=== PATIENT | male | born 1985 | race Caucasian/White ===

== ENCOUNTER 2017-04-22 10:50 | Emergency (ER) | payer SELFPAY ==
--- NOTE | 2017-04-22 11:46 | ER Document Report ---
ED Medical Screen (RME) - General Chief Complaint: Eye Injury Stated Complaint: RIGHT EYE INJURY Time Seen by Provider: 04/22/17 11:45 Notes: Patient bent forward in his closet this morning and hit his eye on the vacuum steam cleaner. He now complaints of eye pain and some decreased vision in the right eye. TRAVEL OUTSIDE OF THE [place] IN LAST 30 DAYS: No - Related Data Allergies/Adverse Reactions: No Known Allergies Allergy (Unverified 04/22/17 10:58) Past Medical History Renal/ Medical History: Denies: Hx Peritoneal Dialysis Physical Exam - Vital signs Vitals: Temp Pulse Resp BP Pulse Ox 98.1 F 56 L 16 150/86 H 98 04/22/17 11:01 04/22/17 11:01 04/22/17 11:01 04/22/17 11:01 04/22/17 11:01 Course - Vital Signs Vital signs: Temp Pulse Resp BP Pulse Ox 98.1 F 56 L 16 150/86 H 98 04/22/17 11:01 04/22/17 11:01 04/22/17 11:01 04/22/17 11:01 04/22/17 11:01
--- NOTE | 2017-04-22 12:38 | ER Document Report ---
ED General - General Chief Complaint: Eye Injury Stated Complaint: RIGHT EYE INJURY Time Seen by Provider: 04/22/17 11:45 Mode of Arrival: Ambulatory Information source: Patient Notes: 31-year-old male presents with an eye injury. Patient notes the handle of a vacuum which was plastic struck him in the eye. Patient notes he has had blurry vision tearing since. Patient denies any other injuries TRAVEL OUTSIDE OF THE [place] IN LAST 30 DAYS: No - HPI Onset: This morning Onset/Duration: Sudden Quality of pain: Burning Severity: Mild Pain Level: 1 Associated symptoms: Other Exacerbated by: Denies Relieved by: Denies Similar symptoms previously: No Recently seen / treated by doctor: No - Related Data Allergies/Adverse Reactions: No Known Allergies Allergy (Unverified 04/22/17 10:58) Past Medical History - Social History Smoking Status: Never Smoker Cigarette use (# per day): No Chew tobacco use (# tins/day): No Smoking Education Provided: No Family History: Reviewed & Not Pertinent Patient has suicidal ideation: No Renal/ Medical History: Denies: Hx Peritoneal Dialysis Review of Systems - Review of Systems Notes: REVIEW OF SYSTEMS: CONSTITUTIONAL : Denies fever, chills, or sweats. Denies recent illness. EENT: Admits to right eye pain redness CARDIOVASCULAR: Denies chest pain. Denies palpitations or racing or irregular heart beat. Denies ankle edema. RESPIRATORY: Denies cough, cold, or chest congestion. Denies shortness of breath, difficulty breathing, or wheezing. GASTROINTESTINAL: Denies abdominal pain or distention. Denies nausea, vomiting , or diarrhea. Denies blood in vomitus, stools, or per rectum. Denies black, tarry stools. Denies constipation. GENITOURINARY: Denies difficulty urinating, painful urination, burning, frequency, blood in urine, or discharge. MUSCULOSKELETAL: Denies back or neck pain or stiffness. Denies joint pain or swelling. SKIN: Denies rash, lesions or sores. HEMATOLOGIC : Denies easy bruising or bleeding. LYMPHATIC: Denies swollen, enlarged glands. NEUROLOGICAL: Denies confusion or altered mental status. Denies passing out or loss of consciousness. Denies dizziness or lightheadedness. Denies headache. Denies weakness or paralysis or loss of use of either side. Denies problems with gait or speech. Denies sensory loss, numbness, or tingling. Denies seizures. PSYCHIATRIC: Denies anxiety or stress. Denies depression, suicidal ideation, or homicidal ideation. ALL OTHER SYSTEMS REVIEWED AND NEGATIVE. Dictation was performed using [employer] voice recognition software PHYSICAL EXAMINATION: GENERAL: Well-appearing, well-nourished and in no acute distress. HEAD: Atraumatic, normocephalic. EYES: Pupils equal round and reactive to light, extraocular movements intact, sclera anicteric, left conjunctiva is normal right conjunctiva is injected Under fluorescein strip to abrasions noted one midline including the pupil and 1 at the 9:00 region ENT: Nares patent, oropharynx clear without exudates. Moist mucous membranes. NECK: Normal range of motion, supple without lymphadenopathy LUNGS: Breath sounds clear to auscultation bilaterally and equal. No wheezes rales or rhonchi. HEART: Regular rate and rhythm without murmurs ABDOMEN: Soft, nontender, nondistended abdomen. No guarding, no rebound. No masses appreciated. Musculoskeletal: Normal range of motion, no pitting or edema. No cyanosis. NEUROLOGICAL: Cranial nerves grossly intact. Normal speech, normal gait. Normal sensory, motor exams PSYCH: Normal mood, normal affect. SKIN: Warm, Dry, normal turgor, no rashes or lesions noted. Physical Exam - Vital signs Vitals: Temp Pulse Resp BP Pulse Ox 98.1 F 56 L 16 150/86 H 98 04/22/17 11:01 04/22/17 11:01 04/22/17 11:01 04/22/17 11:01 04/22/17 11:01 Course - Re-evaluation Re-evalutation: 04/22/17 14:35 Patient notes symptoms improved significantly after tetracaine, he will be started on antibiotics drops given ophthalmology follow-up, he does have abrasions with a negative Yandy sign After performing a Medical Screening Examination, I estimate there is LOW risk for a RETAINED CORNEAL or LID FOREIGN BODY, DEEP SPACE INFECTION (e.g., ORBITAL CELLULITIS OR ABSCESS), ACUTE GLAUCOMA, PENETRATING GLOBE INJURY, RETINAL DETACHMENT, or MENINGITIS thus I consider the discharge disposition reasonable. I have reevaluated this patient multiple times and no significant life threatening changes are noted. Also, there is no evidence or peritonitis, sepsis , or toxicity. The patient and I have discussed the diagnosis and risks, and we agree with discharging home with outpatient follow-up with the understanding that symptoms and presentations can change. We also discussed returning to the Emergency Department immediately if new or worsening symptoms occur. We have discussed the symptoms which are most concerning (e.g., changing or worsening pain, vision changes, neck stiffness or fever) that necessitate immediate return. - Vital Signs Vital signs: Temp Pulse Resp BP Pulse Ox 97.8 F 65 18 157/95 H 98 04/22/17 13:23 04/22/17 13:23 04/22/17 13:23 04/22/17 13:23 04/22/17 13:23 Discharge - Discharge Clinical Impression: Corneal abrasion Qualifiers: Encounter type: initial encounter Laterality: right Qualified Code(s): S05.01XA - Injury of conjunctiva and corneal abrasion without foreign body, right eye, initial encounter Eye pain Qualifiers: Laterality: right Qualified Code(s): H57.11 - Ocular pain, right eye Condition: Stable Disposition: HOME, SELF-CARE Instructions: Corneal Abrasion ([facility]) Prescriptions: Ciprofloxacin HCl [Ciloxan 0.3% Oph Soln 2.5 ml] 2 drop OD Q6 7 Days #1 bottle Forms: Return to Work Referrals: TIGRE SANCHEZ DO [ACTIVE STAFF] - Follow up tomorrow
[2017-04-22 14:01] VITALS: BP 157/95
== END 2017-04-22 13:25 | disposition home or self-care (01) ==
LOC: EDSEX 10:50 → ER 10:50
DX: S05.01XA Injury of conjunctiva and corneal abrasion without foreign body, right eye, initial encounter (principal); H57.11 Ocular pain, right eye; W22.8XXA Striking against or struck by other objects, initial encounter
CPT/HCPCS: 99283

== ENCOUNTER 2018-03-14 03:33 | Emergency (ER) | payer SELFPAY ==
[2018-03-14] MEDS ORDERED: ASPIRIN 81 MG TABLET, CHEWABLE PO ONE (03:39)
--- NOTE | 2018-03-14 04:13 | RADIOLOGY REPORT (SQ) ---
EXAM DESCRIPTION: XR CHEST 1 VIEW COMPLETED DATE/TME: 03/14/2018 03:39 CLINICAL HISTORY: chest pain COMPARISON: None. FINDINGS: Single frontal view of the chest. The cardiomediastinal silhouette has normal size and contour. No consolidation, pneumothorax, or pleural effusion. No acute osseous abnormalities identified. Upper abdominal soft tissues are unremarkable. IMPRESSION: 1. No acute pulmonary process identified.
[2018-03-14 04:15] LABS: ABSOLUTE BASOPHILS # (AUTO) 0.1 10^3/uL (0.0-0.2); ABSOLUTE LYMPHOCYTES (AUTO) 2.1 10^3/uL (0.5-4.7); ABSOLUTE MONOCYTES (AUTO) 0.4 10^3/uL (0.1-1.4); ABSOLUTE NEUT (AUTO) 3.9 10^3/uL (1.7-8.2); EOSINOPHILS % (AUTO) 0.7 % (0-6); HEMOGLOBIN 13.4 g/dL (13.5-17.0); LYMPHOCYTES % (AUTO) 31.9 % (13-45); MEAN CORPUSCULAR HEMOGLOBIN 31.4 pg (27.0-33.4); MEAN CORPUSCULAR HGB CONC 35.4 g/dL (32.0-36.0); MEAN CORPUSCULAR VOLUME 89 fl (80-97); MONOCYTES % (AUTO) 6.7 % (3-13); PLATELET COUNT 103 10^3/uL (150-450); RED BLOOD COUNT 4.28 10^6/uL (4.35-5.55); RED CELL DISTRIBUTION WIDTH 12.5 % (11.5-14.0); TOTAL CELLS COUNTED % (AUTO) 100 %; WHITE BLOOD COUNT 6.6 10^3/uL (4.0-10.5)
[2018-03-14 04:25] LABS: ALANINE AMINOTRANSFERASE 28 U/L (21-72); ALBUMIN 4.6 g/dL (3.5-5.0); ALKALINE PHOSPHATASE 58 U/L (38-126); ANION GAP 14 (5-19); ASPARTATE AMINO TRANSFERASE 26 U/L (17-59); BILIRUBIN,DIRECT 0.3 mg/dL (0.0-0.4); BILIRUBIN,TOTAL 0.4 mg/dL (0.2-1.3); BLOOD UREA NITROGEN 16 mg/dL (7-20); CALCIUM 9.5 mg/dL (8.4-10.2); CARBON DIOXIDE 26 mmol/L (22-30); CHLORIDE 101 mmol/L (98-107); CREATINE KINASE 259 U/L (55-170); GLUCOSE 136 mg/dL (75-110); POTASSIUM 4.2 mmol/L (3.6-5.0); SODIUM 140.6 mmol/L (137-145); TOTAL PROTEIN 7.5 g/dL (6.3-8.2)
--- NOTE | 2018-03-14 04:36 | ER Document Report ---
ED Cardiac - General Chief Complaint: Chest Pain Stated Complaint: CHEST PAIN Time Seen by Provider: 03/14/18 04:03 Mode of Arrival: Ambulatory Information source: Patient Notes: Patient is a 32-year-old male who presents with chief complaint of chest pain. Patient reports the pain is midsternal with radiation to the right side of his chest and wraps around his right flank and back. Patient reports that the pain started at approximately 10 PM. There is associated nausea but no other symptoms. Patient reports that he has a history of SVT, WPW and cardiomegaly. Patient does not take any medications. Patient reports that he has not seen a sales representative publications in 12 years. Patient reports that he has been out in the sun past several days, has been playing basketball and may have overworked himself. TRAVEL OUTSIDE OF THE [place] IN LAST 30 DAYS: No - Related Data Allergies/Adverse Reactions: No Known Allergies Allergy (Unverified 04/22/17 10:58) Past Medical History - General Information source: Patient - Social History Smoking Status: Former Smoker Frequency of alcohol use: Quit drinking 1 year ago Drug Abuse: Other - Quit smoking marijuana 1 year ago Family History: Reviewed & Not Pertinent - Past Medical History Cardiac Medical History: Reports: Other - SVT, WPW, cardiomegaly Renal/ Medical History: Denies: Hx Peritoneal Dialysis Review of Systems - Review of Systems Constitutional: No symptoms reported EENT: No symptoms reported Cardiovascular: See HPI Respiratory: No symptoms reported Gastrointestinal: See HPI Genitourinary: No symptoms reported Male Genitourinary: No symptoms reported Musculoskeletal: No symptoms reported Skin: No symptoms reported Hematologic/Lymphatic: No symptoms reported Neurological/Psychological: No symptoms reported Physical Exam - Vital signs Vitals: Pulse Ox 98 03/14/18 03:39 - Notes Notes: PHYSICAL EXAMINATION: GENERAL: Well-appearing, well-nourished and in no acute distress. HEAD: Atraumatic, normocephalic. EYES: Pupils equal round and reactive to light, extraocular movements intact, sclera anicteric, conjunctiva are normal. ENT: Nares patent, oropharynx clear without exudates. Moist mucous membranes. NECK: Normal range of motion, supple without lymphadenopathy LUNGS: Breath sounds clear to auscultation bilaterally and equal. No wheezes rales or rhonchi. HEART: Regular rate and rhythm without murmurs, tenderness to palpation to right chest wall. ABDOMEN: Soft, nontender, nondistended abdomen. No guarding, no rebound. No masses appreciated. Musculoskeletal: Normal range of motion, no pitting or edema. No cyanosis. NEUROLOGICAL: Cranial nerves grossly intact. Normal speech, normal gait. Normal sensory, motor exams PSYCH: Normal mood, normal affect. SKIN: Warm, Dry, normal turgor, no rashes or lesions noted. Course - Re-evaluation Re-evalutation: Patient with right sided chest pain that is reproducible with palpation. Patient reports complete resolution of his symptoms after GI cocktail. Patient declines to stay for second troponin. Cardiac work up is negative. CBC and CMP unremarkable other than mildly elevated CK likely due to mild dehydration. Chest xray is normal. EKG sinus rhythm, with no ST segment elevations or depressions. Patient initially hypertensive on arrival and has resolved during stay. Extensive conversation with patient regarding establishing primary care to follow his blood pressure. Patient encouraged to return if symptoms return. Patient informed that we cannot rule out ACS on one troponin alone. Heart score is 1. Patient continues to decline second troponin. Patient agrees to increase his fluid intake, declines IV fluids. - Vital Signs Vital signs: Temp Pulse Resp BP Pulse Ox 98.5 F 57 L 21 H 155/94 H 98 03/14/18 03:45 03/14/18 03:45 03/14/18 07:03 03/14/18 07:03 03/14/18 07:03 - Laboratory Result Diagrams: 03/14/18 03:50 03/14/18 03:50 Laboratory results interpreted by me: 03/14/18 03/14/18 03:50 03:50 RBC 4.28 L Hgb 13.4 L Plt Count 103 L Glucose 136 H Creatine Kinase 259 H Discharge - Discharge Clinical Impression: Chest pain Qualifiers: Chest pain type: unspecified Qualified Code(s): R07.9 - Chest pain, unspecified Condition: Stable Disposition: HOME, SELF-CARE Additional Instructions: Chest Wall Pain Your chest pain has been diagnosed as coming from the chest wall. This is often caused by straining the muscles or joints in the chest during physical activity, direct trauma, coughing, or vigorous vomiting. Persons with arthritis are especially prone to this type of pain, due to inflammation of the cartilage joints near the breast bone. Occasionally, no cause can be found. Rest from strenuous physical activity. This kind of chest pain is usually made worse by movement of the chest. Depending on the symptoms, we may prescribe medicine for pain, muscle relaxation, and antiinflammatory effects. If the pain is new, and seems to be due to muscle strain, cold packs can help. Otherwise, apply gentle warmth to the painful area for 15 minutes every hour or two. You should contact the doctor immediately if things change. Further evaluation is needed if you develop a fever or cough, if the nature of the pain changes, or if you become short of breath. Reflux Disease (GERD) Gastro-Esophageal Reflux Disease (GERD) is caused by stomach acid refluxing back up into the esophagus. The valve at the end of the esophagus may be weak. This is common in persons with a hiatal hernia. GERD symptoms can include indigestion, chest pain, heartburn, or food "sticking." Certain foods, alcohol, and aspirin can make GERD worse. Treatment depends on the severity. Usually, antacids or acid-suppressing medicines are used. When the esophagus is acutely inflamed, the physician will often prescribe membrane-protective drugs such as Carafate. Some patients benefit from medication such as Reglan that tightens the valve at the top of the stomach. Avoid those foods that bring on your symptoms. For many people, these foods are coffee, chocolate, onions, garlic, and carbonated drinks. Don't use alcohol, aspirin, caffeine, or tobacco. Don't eat late at night -- within 4 hours of bedtime. Don't over-eat. If necessary, elevate the head of your bed about 4 inches so that stomach acid will not roll up into your esophagus. Call the doctor if you develop severe chest pain, inability to swallow fluids, fever, or worsening symptoms. Return to ED if chest pain returns or any other concerning symptoms, drink plenty of fluids. Follow up with primary care to follow blood pressure. Referrals: [facility] [Provider Group] - Follow up as needed [facility] [Provider Group] - Follow up as needed
[2018-03-14 04:39] LABS: CREATINE KINASE MB 1.46 ng/mL (<4.55)
[2018-03-14 04:40] LABS: TROPONIN I < 0.012 ng/mL
[2018-03-14 04:58] LABS: SEGMENTED NEUTROPHILS % (AUTO) 59.7 % (42-78)
[2018-03-14] MEDS ORDERED: MAG HYDROX/AL HYDROX/SIMETH SUSP 30 ML UDCUP PO ONE (05:09)
[2018-03-14] MEDS ORDERED: LIDOCAINE 2% VISCOUS SOLN 20 ML UDCUP PO ONE (05:09)
[2018-03-14] MEDS ORDERED: METOCLOPRAMIDE HCL ORAL SOLN 10 MG/10 ML UDCUP PO ONE (05:10)
[2018-03-14 07:09] VITALS: BP 155/94
--- NOTE | 2018-03-15 03:10 | EKG REPORT ---
SEVERITY:- ABNORMAL ECG - SINUS RHYTHM PROBABLE LEFT ATRIAL ABNORMALITY LEFT BUNDLE BRANCH BLOCK : Confirmed by: Kristin Castro MD 15-Mar-2018 03:09:05
== END 2018-03-14 07:09 | disposition home or self-care (01) ==
LOC: ER 03:33
DX: R07.9 Chest pain, unspecified (principal); R11.0 Nausea; Z86.79 Personal history of other diseases of the circulatory system; Z87.891 Personal history of nicotine dependence
CPT/HCPCS: 93005; 99285; 36415; 82553; 82550; 85025; 80053; 84484; 71045; 93010; J3490

== ENCOUNTER 2018-03-14 10:26 | Emergency (ER) | payer SELFPAY ==
[2018-03-14 10:47] VITALS: BP 188/82
--- NOTE | 2018-03-15 03:10 | EKG REPORT ---
SEVERITY:- ABNORMAL ECG - SINUS BRADYCARDIA LEFT BUNDLE BRANCH BLOCK INFERIOR Q WAVES, POSSIBLY DUE TO LBBB : Confirmed by: Kristin Castro MD 15-Mar-2018 03:08:47
== END 2018-03-14 12:12 | disposition left against medical advice (07) ==
LOC: ER 10:26
DX: Z53.21 Procedure and treatment not carried out due to patient leaving prior to being seen by health care provider (principal)
CPT/HCPCS: 93005; 93010

== ENCOUNTER 2018-05-24 12:43 | Inpatient (IN) | payer SELFPAY ==
[2018-05-24] MEDS ORDERED: ASPIRIN 81 MG TABLET, CHEWABLE PO ONE (13:25)
[2018-05-24] MEDS ORDERED: ONDANSETRON HCL INJ/PF 4 MG/2 ML SDV IV ONE (13:26)
[2018-05-24] MEDS ORDERED: MORPHINE SULFATE 10 MG/ML INJ IV ONE ×2 (13:26→15:24)
--- NOTE | 2018-05-24 13:29 | ER Document Report ---
ED Medical Screen (RME) - General Chief Complaint: Chest Pain Stated Complaint: ABDOMINAL PAIN/VOMITING Time Seen by Provider: 05/24/18 13:21 Mode of Arrival: Ambulatory Information source: Patient Notes: 32-year-old male with a history of WPW, SVT presents with right-sided chest and abdominal pain that started 9 hours prior to arrival. Patient describes the pain as constant, cramping. Patient has had associated nausea and vomiting. I have greeted and performed a rapid initial assessment of this patient. A comprehensive ED assessment and evaluation of the patient, analysis of test results and completion of medical decision making process we will be contacted by additional ED providers. PHYSICAL EXAMINATION: Vital signs reviewed-hypertensive, bradycardic. GENERAL: Ill-appearing LUNGS: No respiratory distress Musculoskeletal: Normal range of motion NEUROLOGICAL: Normal speech, normal gait. PSYCH: Normal mood, normal affect. SKIN: Warm, Dry, normal turgor, no rashes or lesions noted. TRAVEL OUTSIDE OF THE [place] IN LAST 30 DAYS: No - HPI Onset: This morning Onset/Duration: Sudden, Constant Quality of pain: Achy, Cramping Severity: Moderate Associated Symptoms: Abdominal pain, Chest pain, Nausea, Vomiting Exacerbated by: Denies Relieved by: Denies Similar symptoms previously: No Recently seen / treated by doctor: No - Related Data Smoking: Quit greater than 1 year Frequency of alcohol use: None Drug Abuse: None Allergies/Adverse Reactions: No Known Allergies Allergy (Verified 03/14/18 10:26) Past Medical History Renal/ Medical History: Denies: Hx Peritoneal Dialysis Physical Exam - Vital signs Vitals: Temp Pulse Resp BP Pulse Ox 97.9 F 50 L 16 196/83 H 98 05/24/18 12:50 05/24/18 12:50 05/24/18 12:50 05/24/18 12:50 05/24/18 12:50 Course - Vital Signs Vital signs: Temp Pulse Resp BP Pulse Ox 97.9 F 50 L 16 196/83 H 98 05/24/18 12:50 05/24/18 12:50 05/24/18 12:50 05/24/18 12:50 05/24/18 12:50
[2018-05-24] MEDS ORDERED: ASPIRIN 81 MG TABLET, CHEWABLE ONE (13:46)
[2018-05-24 14:08] LABS: ABSOLUTE BASOPHILS # (AUTO) 0.1 10^3/uL (0.0-0.2); ABSOLUTE LYMPHOCYTES (AUTO) 0.8 10^3/uL (0.5-4.7); ABSOLUTE MONOCYTES (AUTO) 0.2 10^3/uL (0.1-1.4); ABSOLUTE NEUT (AUTO) 15.1 10^3/uL (1.7-8.2); BASOPHILS % (AUTO) 0.6 % (0-2); EOSINOPHILS % (AUTO) 0.1 % (0-6); HEMATOCRIT 41.5 % (37.9-51.0); HEMOGLOBIN 14.9 g/dL (13.5-17.0); LYMPHOCYTES % (AUTO) 5.2 % (13-45); MEAN CORPUSCULAR HEMOGLOBIN 31.5 pg (27.0-33.4); MEAN CORPUSCULAR HGB CONC 35.8 g/dL (32.0-36.0); MEAN CORPUSCULAR VOLUME 88 fl (80-97); MONOCYTES % (AUTO) 1.4 % (3-13); PLATELET COUNT 363 10^3/uL (150-450); RED BLOOD COUNT 4.72 10^6/uL (4.35-5.55); SEGMENTED NEUTROPHILS % (AUTO) 92.7 % (42-78); TOTAL CELLS COUNTED % (AUTO) 100 %; WHITE BLOOD COUNT 16.3 10^3/uL (4.0-10.5)
[2018-05-24 14:23] LABS: ALANINE AMINOTRANSFERASE 35 U/L (21-72); ALKALINE PHOSPHATASE 71 U/L (38-126); ANION GAP 14 (5-19); ASPARTATE AMINO TRANSFERASE 34 U/L (17-59); BILIRUBIN,DIRECT 0.5 mg/dL (0.0-0.4); BILIRUBIN,TOTAL 0.7 mg/dL (0.2-1.3); BLOOD UREA NITROGEN 11 mg/dL (7-20); CALCIUM 10.5 mg/dL (8.4-10.2); CARBON DIOXIDE 25 mmol/L (22-30); CHLORIDE 100 mmol/L (98-107); CREATINE KINASE 224 U/L (55-170); GLUCOSE 156 mg/dL (75-110); LIPASE 48.4 U/L (23-300); POTASSIUM 4.7 mmol/L (3.6-5.0); SODIUM 138.7 mmol/L (137-145); TOTAL PROTEIN 8.5 g/dL (6.3-8.2)
--- NOTE | 2018-05-24 14:28 | RADIOLOGY REPORT (SQ) ---
EXAM DESCRIPTION: CHEST 2 VIEWS COMPLETED DATE/TIME: 05/24/2018 2:17 pm REASON FOR STUDY: chest pain COMPARISON: AP chest 03/14/2018 EXAM PARAMETERS: NUMBER OF VIEWS: two views TECHNIQUE: Digital Frontal and Lateral radiographic views of the chest acquired. RADIATION DOSE: NA LIMITATIONS: none FINDINGS: LUNGS AND PLEURA: No opacities, masses or pneumothorax. No pleural effusion. MEDIASTINUM AND HILAR STRUCTURES: No masses or contour abnormalities. HEART AND VASCULAR STRUCTURES: Mild cardiomegaly BONES: No acute findings. HARDWARE: None in the chest. OTHER: No other significant finding. IMPRESSION: Mild cardiomegaly TECHNICAL DOCUMENTATION: JOB ID: [id number] [employer]- All Rights Reserved Reading location - IP/workstation name: [email or web address]
[2018-05-24 14:34] LABS: CREATINE KINASE MB 2.13 ng/mL (<4.55)
[2018-05-24 14:36] LABS: TROPONIN I < 0.012 ng/mL
--- NOTE | 2018-05-24 15:04 | ER Document Report ---
ED General - General Chief Complaint: Chest Pain Stated Complaint: ABDOMINAL PAIN/VOMITING Time Seen by Provider: 05/24/18 13:21 Mode of Arrival: Ambulatory Information source: Patient Notes: 32-year-old male with a history of WPW, SVT presents with right-sided chest and abdominal pain that started 9 hours prior to arrival. Patient describes the pain as constant, cramping sensation. Patient states that the pain starts in the epigastric area and radiates down into the right lower quadrant. Patient has had associated nausea and vomiting. Patient denies any diarrhea, constipation, dysuria, hematuria, testicular pain. Patient denies any alleviating or exacerbating factors. Patient states that he does not follow-up with a primary care physician. He is not on any current medications. Patient states that he has had a history of high blood pressure in the past. TRAVEL OUTSIDE OF THE [place] IN LAST 30 DAYS: No - HPI Onset: This morning Onset/Duration: Gradual Quality of pain: Cramping Severity: Moderate Associated symptoms: Nausea, Vomiting Exacerbated by: Denies Relieved by: Denies Similar symptoms previously: Yes Recently seen / treated by doctor: No - Related Data Allergies/Adverse Reactions: No Known Allergies Allergy (Verified 03/14/18 10:26) Past Medical History - General Information source: Patient - Social History Smoking Status: Former Smoker Frequency of alcohol use: None Drug Abuse: None Family History: Reviewed & Not Pertinent Patient has suicidal ideation: No Patient has homicidal ideation: No Renal/ Medical History: Denies: Hx Peritoneal Dialysis Review of Systems - Review of Systems Constitutional: No symptoms reported EENT: No symptoms reported Cardiovascular: Chest pain Respiratory: No symptoms reported Gastrointestinal: Abdominal pain, Nausea, Vomiting Genitourinary: No symptoms reported Male Genitourinary: No symptoms reported Musculoskeletal: No symptoms reported Skin: No symptoms reported Hematologic/Lymphatic: No symptoms reported Neurological/Psychological: No symptoms reported -: Yes All other systems reviewed and negative Physical Exam - Vital signs Vitals: Temp Pulse Resp BP Pulse Ox 97.9 F 50 L 16 196/83 H 98 05/24/18 12:50 05/24/18 12:50 05/24/18 12:50 05/24/18 12:50 05/24/18 12:50 - Notes Notes: PHYSICAL EXAMINATION: GENERAL: Well-appearing, well-nourished and in no acute distress. HEAD: Atraumatic, normocephalic. EYES: Pupils equal round and reactive to light, extraocular movements intact, sclera anicteric, conjunctiva are normal. ENT: Nares patent, oropharynx clear without exudates. Moist mucous membranes. NECK: Normal range of motion, supple without lymphadenopathy LUNGS: Breath sounds clear to auscultation bilaterally and equal. No wheezes rales or rhonchi. HEART: Regular rate and rhythm without murmurs ABDOMEN: Soft, obese. Tenderness to palpation in the epigastric area, right upper quadrant, right lower quadrant, suprapubic area. No guarding, no rebound. No masses appreciated. Musculoskeletal: Normal range of motion, no pitting or edema. No cyanosis. NEUROLOGICAL: Cranial nerves grossly intact. Normal speech, normal gait. Normal sensory, motor exams PSYCH: Normal mood, normal affect. SKIN: Warm, Dry, normal turgor, no rashes or lesions noted. Course - Re-evaluation Re-evalutation: 05/24/18 15:03 EKG: Ventricular rate 44, ND interval 102, QRS duration 140, QTc 449, sinus bradycardia, EKG similar to 03/14/18. 05/24/18 15:25 Patient given clonidine for hypertension and atropine for symptomatic bradycardia. WBC is elevated. With the patient having tenderness to palpation in the RLQ, a CT abd/pel was ordered to evaluate for appendicitis. 05/24/18 18:23 CT abdomen pelvis showed no stones with a possible right lower lobe pneumonia versus atelectasis. Gallbladder ultrasound was done. There is a small stone in the gallbladder neck as well as borderline gallbladder wall thickening. was consulted. He came to the ED to evaluate the patient. He will take the patient to the OR in the AM. He'll start antibiotics. Would like the patient admitted to the hospitalist. I spoke with Dr. Wilson. He's agreeable with taking the patient. I spoke with Dr. King. He says the churner construction administrator in the AM can see and evaluate the patient as this is not an emergency. 05/24/18 19:03 - Vital Signs Vital signs: Temp Pulse Resp BP Pulse Ox 97.9 F 50 L 15 176/84 H 99 05/24/18 12:50 05/24/18 12:50 05/24/18 17:15 05/24/18 17:15 05/24/18 17:15 - Laboratory Result Diagrams: 05/24/18 13:25 05/24/18 13:25 Laboratory results interpreted by me: 05/24/18 05/24/18 05/24/18 13:25 13:25 16:52 WBC 16.3 H Seg Neutrophils % 92.7 H Lymphocytes % 5.2 L Monocytes % 1.4 L Absolute Neutrophils 15.1 H Glucose 156 H Calcium 10.5 H Direct Bilirubin 0.5 H Creatine Kinase 224 H Total Protein 8.5 H Urine Protein 100 H Discharge - Discharge Clinical Impression: WPW ([id number] syndrome) Cholelithiasis Qualifiers: Cholelithiasis location: gallbladder Cholecystitis presence: with cholecystitis Cholecystitis acuity: acute Biliary obstruction: without biliary obstruction Qualified Code(s): K80.00 - Calculus of gallbladder with acute cholecystitis without obstruction Hypertension Qualifiers: Hypertension type: unspecified Qualified Code(s): I10 - Essential (primary) hypertension Condition: Good Disposition: ADMITTED OBSERVATION Admitting Provider: Hospitalist Unit Admitted: Telemetry
[2018-05-24] MEDS ORDERED: CLONIDINE HCL 0.1 MG TABLET PO ONE (15:11)
[2018-05-24] MEDS ORDERED: ATROPINE SULFATE INJ 1 MG/1 ML VIAL IV ONE (15:16)
--- NOTE | 2018-05-24 16:23 | RADIOLOGY REPORT (SQ) ---
EXAM DESCRIPTION: CT ABD/PELVIS WITH IV ONLY COMPLETED DATE/TIME: 05/24/2018 4:02 pm REASON FOR STUDY: RLQ pain COMPARISON: None. TECHNIQUE: CT scan of the abdomen and pelvis performed using helical scanning technique with dynamic intravenous contrast injection. No oral contrast. Images reviewed with lung, soft tissue, and bone windows. Reconstructed coronal and sagittal MPR images reviewed. Delayed images for evaluation of the urinary system also acquired. All images stored on PACS. All CT scanners at this facility use dose modulation, iterative reconstruction, and/or weight based d osing when appropriate to reduce radiation dose to as low as reasonably achievable (ALARA). [facility]: Dose Right [facility]: CareDose [facility]: Dose Right [facility]: Teradose 4D [facility]: TradingView CONTRAST TYPE AND DOSE: contrast/concentration: Isovue 350.00 mg/ml; Total Contrast Delivered: 100.0 ml; Total Saline Delivered: 72.0 ml RENAL FUNCTION: Creatinine: 0.92. RADIATION DOSE: CT Rad equipment meets quality standard of care and radiation dose reduction techniq ues were employed. CTDIvol: 19.9 - 21.1 mGy. DLP: 2313 mGy-cm.. LIMITATIONS: None. FINDINGS: LOWER CHEST: Chronic scarring in lung bases. Right lower lobe atelectasis or infiltrate. LIVER: Small rounded area decreased attenuation inferior right lobe of the liver could represent hepa tic cyst too small to characterize. SPLEEN: No abnormality. PANCREAS: No abnormality. GALLBLADDER: Cholelithiasis. ADRENAL GLANDS: No significant masses or asymmetry. RIGHT KIDNEY AND URETER: No abnormality. Cortical cyst posterior cortex upper pole. LEFT KIDNEY AND URETER: No abnormality. AORTA AND VESSELS: No aneurysm. No dissection. Renal arteries, SMA, celiac without stenosis. RETROPERITONEUM: No retroperitoneal adenopathy, hemorrhage or masses. BOWEL AND PERITONEAL CAVITY: No abnormality. APPENDIX: Normal. PELVIS: Urinary bladder: No abnormality. Prostate and seminal vesicles: No abnormality. ABDOMINAL WALL: No masses. No hernias. BONES: No significant or acute findings. OTHER: No other significant finding. IMPRESSION: Infiltrate or atelectasis right lower lobe. Probable small hepatic cyst right lobe of l iver. Cholelithiasis. TECHNICAL DOCUMENTATION: JOB ID: [id number] Quality ID # [id number]: Final reports with documentation of one or more dose reduction techniques (e.g., Au tomated exposure control, adjustment of the mA and/or kV according to patient size, use of iterative reconstruction technique) 2010 [employer]- All Rights Reserved Reading location - IP/workstation name: [email or web address]
[2018-05-24 17:10] LABS: APPEARANCE,URINE CLEAR; BILIRUBIN,URINE NEGATIVE (NEGATIVE); COLOR,URINE YELLOW; GLUCOSE, URINE NEGATIVE (NEGATIVE); KETONES,URINE NEGATIVE (NEGATIVE); LEUKOCYTE ESTERASE,URINE NEGATIVE (NEGATIVE); NITRITE,URINE NEGATIVE (NEGATIVE); PROTEIN,URINE 100 mg/dL (NEGATIVE); URINE SPECIFIC GRAVITY 1.056; UROBILINOGEN,URINE NEGATIVE mg/dL (<2.0)
--- NOTE | 2018-05-24 17:26 | RADIOLOGY REPORT (SQ) ---
EXAM DESCRIPTION: U/S ABDOMEN LIMITED W/O DOP COMPLETED DATE/TIME: 05/24/2018 5:10 pm REASON FOR STUDY: RUQ pain COMPARISON: CT abdomen pelvis 05/24/2018 TECHNIQUE: Dynamic and static grayscale images acquired of the abdomen and recorded on PACS. Additio nal selected color Doppler and spectral images recorded. LIMITATIONS: Midline bowel gas FINDINGS: PANCREAS: Midline pancreas unremarkable LIVER: No masses. Echotexture normal. LIVER VASCULATURE: Normal directional flow of the main portal vein and hepatic veins. GALLBLADDER: Small stone at the gallbladder neck. Borderline gallbladder wall thickening. ULTRASOUND-DETECTED WOODS'S SIGN: Patient given pain medicine prior to the procedure INTRAHEPATIC DUCTS AND COMMON DUCT: CBD and intrahepatic ducts normal caliber. No filling defects. INFERIOR VENA CAVA: Normal flow. AORTA: No aneurysm. RIGHT KIDNEY: Normal size. Normal echogenicity. No solid or suspicious masses. No hydronephrosis. No calcifications. PERITONEAL AND RIGHT PLEURAL SPACE: No ascites or effusions. OTHER: No other significant findings. IMPRESSION: Small stone in the gallbladder neck. Borderline gallbladder wall thickening. TECHNICAL DOCUMENTATION: JOB ID: [id number] [employer]- All Rights Reserved Reading location - IP/workstation name: [email or web address]
[2018-05-24] MEDS ORDERED: PIPERACILLIN/TAZOBACTAM 3.375 GM VIAL IV PRN (18:14)
[2018-05-24] MEDS ORDERED: NORMAL SALINE INJ/PF 0.9% 10 ML SDV IV ONE (18:22)
[2018-05-24] MEDS ORDERED: NORMAL SALINE 1000 ML 1,000 ML IV PRN (18:24)
[2018-05-24] MEDS ORDERED: ACETAMINOPHEN 650 MG SUPP.RECT PR PRN (18:34)
[2018-05-24] MEDS ORDERED: PROMETHAZINE HCL INJ 25 MG/1 ML VIAL IV PRN (18:34)
[2018-05-24] MEDS: PIPERACILLIN SODIUM/TAZOBACTAM 3.375 GM in NORMAL SALINE 50 ML IV SCH ×2 (18:35→23:55)
--- NOTE | 2018-05-24 18:35 | PDOC CONSULTATION ---
Consultation Consult Date: 05/24/18 Consult reason:: Gallstone with pains History of Present Illness Patient complains of: abdominal pains History of Present Illness: ANN VARGAS is a 32 year old male with history of raphael Parkinson White syndrome with SVT c/o RUQ pains since 4:30 this am. Associated Nausea/vomiting. He had 2 pizzas and chicken wings for dinner last night which he usually eats without any problem. Had an ultrasound in ED which showed a stone at the cystic duct area with mild thickening of gallbladder wall. He was also told at age 16 that he has an enlarged heart. Denies fever or chills. Past Medical History Cardiac Medical History: Reports: Other - told to have an enlarged heart and has Qeso-Oegjzzpyk-Banuy syndrome w/ SVT GI Medical History: Reports: Gastroesophageal Reflux Disease - Seen in the ED 1 1/2 months ago and diagnosed with Reflux Past Surgical History Past Surgical History: Reports: Other - Myringotomy at age 2 Social History Smoking Status: Former Smoker Frequency of Alcohol Use: None Hx Recreational Drug Use: No Family History Family History: Reviewed & Not Pertinent Parental Family History Reviewed: Yes - mother of SD age 54 Children Family History Reviewed: No Sibling(s) Family History Reviewed.: No Medication/Allergy Home Medications: Ciprofloxacin HCl [Ciloxan 0.3% Oph Soln 2.5 ml] 2 drop OD Q6 7 Days #1 bottle 04/22/17 Allergies/Adverse Reactions: No Known Allergies Allergy (Verified 03/14/18 10:26) Review of Systems Constitutional: PRESENT: as per HPI Eyes: PRESENT: other - no visual/hearing changes Cardiovascular: PRESENT: other - no chest pains/cough Gastrointestinal: PRESENT: abdominal pain, nausea, vomiting Genitourinary: PRESENT: other - no dysuria Neurological: PRESENT: other - no seizures Physical Exam Vital Signs: Temp Pulse Resp BP Pulse Ox 97.9 F 50 L 15 176/84 H 99 05/24/18 12:50 05/24/18 12:50 05/24/18 17:15 05/24/18 17:15 05/24/18 17:15 Intake & Output 05/23/18 05/24/18 05/25/18 06:59 06:59 06:59 Weight 114.9 kg General appearance: PRESENT: mild distress Head exam: PRESENT: atraumatic Eye exam: PRESENT: conjunctiva pink Mouth exam: PRESENT: moist Neck exam: PRESENT: full ROM Respiratory exam: PRESENT: clear to auscultation parsad Cardiovascular exam: PRESENT: RRR - Was bradycardic in 40's earlier in ED and responded to Atropine Pulses: PRESENT: normal radial pulses Vascular exam: PRESENT: normal capillary refill GI/Abdominal exam: PRESENT: soft, tenderness - mild tenderness RUQ Rectal exam: PRESENT: deferred Extremities exam: PRESENT: full ROM Musculoskeletal exam: PRESENT: ambulatory Neurological exam: PRESENT: alert, oriented to person, oriented to place, oriented to time, oriented to situation Psychiatric exam: PRESENT: appropriate affect Skin exam: PRESENT: normal color, warm Results Laboratory Results: 05/24/18 13:25 05/24/18 13:25 05/24/18 05/24/18 05/24/18 13:25 13:25 16:52 WBC 16.3 H RBC 4.72 Hgb 14.9 Hct 41.5 MCV 88 MCH 31.5 MCHC 35.8 RDW 13.0 Plt Count 363 Seg Neutrophils % 92.7 H Lymphocytes % 5.2 L Monocytes % 1.4 L Eosinophils % 0.1 Basophils % 0.6 Absolute Neutrophils 15.1 H Absolute Lymphocytes 0.8 Absolute Monocytes 0.2 Absolute Eosinophils 0.0 Absolute Basophils 0.1 Sodium 138.7 Potassium 4.7 Chloride 100 Carbon Dioxide 25 Anion Gap 14 BUN 11 Creatinine 0.92 Est GFR ( Amer) > 60 Est GFR (Non-Af Amer) > 60 Glucose 156 H Calcium 10.5 H Total Bilirubin 0.7 AST 34 ALT 35 Alkaline Phosphatase 71 Total Protein 8.5 H Albumin 5.0 Lipase 48.4 Urine Color YELLOW Urine Appearance CLEAR Urine pH 5.0 Ur Specific [place] 1.056 Urine Protein 100 H Urine Glucose (UA) NEGATIVE Urine Ketones NEGATIVE Urine Blood NEGATIVE Urine Nitrite NEGATIVE Ur Leukocyte Esterase NEGATIVE Urine WBC (Auto) 1 Urine RBC (Auto) 0 05/24/18 05/24/18 05/24/18 13:25 13:25 13:25 Creatine Kinase 224 H CK-MB (CK-2) 2.13 Troponin I < 0.012 NT-Pro-B Natriuret Pep 82 05/24/18 17:26 Creatine Kinase CK-MB (CK-2) Troponin I < 0.012 NT-Pro-B Natriuret Pep Impressions: Chest X-Ray 05/24/18 13:26 IMPRESSION: Mild cardiomegaly Abdomen/Pelvis CT 05/24/18 15:24 IMPRESSION: Infiltrate or atelectasis right lower lobe. Probable small hepatic cyst right lobe of liver. Cholelithiasis. Abdomen Ultrasound 05/24/18 16:35 IMPRESSION: Small stone in the gallbladder neck. Borderline gallbladder wall thickening. Assessment & Plan - Diagnosis (1) Cholelithiasis and acute cholecystitis with obstruction Is this a current diagnosis for this admission?: Yes (2) Sddbg-Rkdxjcbst-Jrqdr syndrome Is this a current diagnosis for this admission?: Yes - Time Time Spent: 30 to 50 Minutes - Inpatient Certification Medical Necessity: Need For IV Fluids, Need for Pain Control, Need for IV Antibiotics, Need for Surgery, Risk of Complication if Not Cared For in Hospital - Plan Summary Plan Summary: Needs med/cardiology clearance prior to surgery. IV antibiotics Hydrate OK to have Clears but NPO after midnite
[2018-05-24] MEDS ORDERED: MORPHINE SULFATE 10 MG/ML INJ IV PRN (18:44)
[2018-05-24] MEDS ORDERED: HYDRALAZINE HCL INJ/PF 20 MG/1 ML SDV IV PRN (18:47)
--- NOTE | 2018-05-24 19:13 | EKG REPORT ---
SEVERITY:- ABNORMAL ECG - SINUS BRADYCARDIA VENT PREEXCITATION, RIGHT ACCESSORY PATHWAY : Confirmed by: Noelle Price 24-May-2018 19:12:32
--- NOTE | 2018-05-24 20:43 | PDOC H&P ---
History of Present Illness Admission Date/PCP: 05/24/18 18:41 None Patient complains of: RUQ pain History of Present Illness: ANN VARGAS is a 32 year old male with medical history of Liu Parkinson White syndrome, SVTs, enlarged heart, GERD. Comes to the emergency department complaining of right upper quadrant pain that is started around 4 in the morning. Patient tells me that yesterday he ate more than his usual, he had almost one whole pizza with 5 teriyaki boneless and skittles. 2 hours after dinner he started with some right upper quadrant discomfort but he did not pay much attention and thought it was his GERD, he took Pepto-Bismol and went to sleep. Around 40 in the morning he started with loose stools, 6 nonbloody bowel movements that he stopped at 8 in the morning. Had also 2 episodes of nausea and nonbloody vomiting, vomited pizza and Pepto-Bismol. States that his right upper quadrant pain went up to 7/10 intensity, pressure-like, he did not feel that was related with food. Patient had similar symptoms in the past for several weeks but in less intensity. Patient was seen in our emergency department February this year for a similar symptoms but not at this intense and was told that was GERD and was sent home. Denies fever, chills, chest pain, shortness of breath, palpitations, headaches, dizziness or lightheadedness. Patient has not eaten anything today. She has been evaluated by Dr. Gallardo from the general surgery department and plan for cholecystectomy. Regarding his cardiac condition, tells me that he had cardiac problems since he is on high school, with on and off palpitations that he usually controls holding his breath, when he was 15 years old he had persistent palpitations and he was in the emergency department when he was diagnosed with SVT and apparently adenosine was given at some point, patient was referred to cardiology Dr. 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 Since then he has been having symptoms on and off that were self-limited and improved when he quit the smoking February 2017. Tells me that now rarely has any symptoms. Denies ever passing out secondary to the symptoms. Has been told that he cannot play basketball. Patient works as a maintenance painter and sometimes when he is exerting too much she has "pulling muscle like" back pain in between his shoulder blades that sometimes radiates to his chest Past Medical History Cardiac Medical History: Reports: Hypertension, Other - told to have an enlarged heart and has Vkpm-Watygrhts-Eowwj syndrome w/ SVT GI Medical History: Reports: Gastroesophageal Reflux Disease - Seen in the ED 1 1/2 months ago and diagnosed with Reflux Past Surgical History Past Surgical History: Reports: Other - Myringotomy at age 2 Social History Lives with: Family Smoking Status: Former Smoker - Quit February 2017, used to smoke 2 packs/day Frequency of Alcohol Use: None Hx Recreational Drug Use: No - Used to do marijuana, quit September 2016 Hx Prescription Drug Abuse: No Past Social History Note: Works as maintenance painter and live with his brother - Advance Directive Resuscitation Status: Full Code Family History Family History: Reviewed & Not Pertinent Family History: Father alive 56 years old with no medical condition. Mother at 54 years old with a massive heart attack, was diagnosed with borderline diabetes mellitus. Parental Family History Reviewed: Yes - As above Children Family History Reviewed: NA Sibling(s) Family History Reviewed.: NA Medication/Allergy Home Medications: Ciprofloxacin HCl [Ciloxan 0.3% Oph Soln 2.5 ml] 2 drop OD Q6 7 Days #1 bottle 04/22/17 Allergies/Adverse Reactions: No Known Allergies Allergy (Verified 03/14/18 10:26) Review of Systems Review of Systems: As outlined above, others negative Physical Exam Vital Signs: Temp Pulse Resp BP Pulse Ox 97.9 F 50 L 19 145/72 H 98 05/24/18 12:50 05/24/18 12:50 05/24/18 19:01 05/24/18 19:01 05/24/18 19:01 Additional comments: General appearance: Well-developed, obese, alert and cooperative, and appears to be in no acute distress Head: Normocephalic Eyes: PEERL, EOMI, vision is grossly intact. Ears: External auditory canal and tympanic membranes clear, hearing grossly intact. Nose: No nasal discharge. Throat: Oral cavity and pharynx normal. No inflammation, swelling, exudate or lesions. Neck: Neck supple, nontender without lymphadenopathy, masses or thyromegaly. Cardiac: Normal S1 and S2. No S3, S4 or murmurs. Rhythm is regular. There is no peripheral edema, cyanosis or pallor. Extremities are warm and well perfused. Capillary refill is less than 2 seconds. No carotid bruits. Lungs: Clear to auscultation and percussion without rales, rhonchi, wheezing or diminished breath sounds. Not using accessory muscles. Abdomen: Positive bowel sounds decreased. Soft. When pressure left upper quadrant patient has tenderness to the right upper quadrant, tenderness to palpation in the right upper quadrant, Cornejo negative during my evaluation. No masses. No hepatosplenomegaly Extremities: No significant deformity or joint abnormality. No edema. Peripheral pulses intact. No varicosities. Neurological: Cranial nerves II through XII grossly intact. Strength and sensation symmetric and intact throughout. Reflexes 2+ throughout. Skin: Skin normal color, texture and turgor with no lesions or eruptions, warm and dry. Tattoos on his back Psychiatric: The mental examination revealed the patient was oriented to person , place, and time. The patient was able to demonstrate good judgment on recent , without hallucinations, abnormal affect or abnormal behaviors. Results Laboratory Results: 05/24/18 05/24/18 05/24/18 13:25 13:25 13:25 WBC 16.3 H RBC 4.72 Hgb 14.9 Hct 41.5 MCV 88 MCH 31.5 MCHC 35.8 RDW 13.0 Plt Count 363 Seg Neutrophils % 92.7 H Lymphocytes % 5.2 L Monocytes % 1.4 L Eosinophils % 0.1 Basophils % 0.6 Absolute Neutrophils 15.1 H Absolute Lymphocytes 0.8 Absolute Monocytes 0.2 Absolute Eosinophils 0.0 Absolute Basophils 0.1 Sodium 138.7 Potassium 4.7 Chloride 100 Carbon Dioxide 25 Anion Gap 14 BUN 11 Creatinine 0.92 Est GFR ( Amer) > 60 Est GFR (Non-Af Amer) > 60 Glucose 156 H Calcium 10.5 H Total Bilirubin 0.7 Direct Bilirubin 0.5 H AST 34 ALT 35 Alkaline Phosphatase 71 Creatine Kinase 224 H CK-MB (CK-2) 2.13 Troponin I < 0.012 NT-Pro-B Natriuret Pep Total Protein 8.5 H Albumin 5.0 Lipase 48.4 Urine Color Urine Appearance Urine pH Ur Specific [place] Urine Protein Urine Glucose (UA) Urine Ketones Urine Blood Urine Nitrite Urine Bilirubin Urine Urobilinogen Ur Leukocyte Esterase Urine WBC (Auto) Urine RBC (Auto) Urine Mucus (Auto) Urine Ascorbic Acid 05/24/18 05/24/18 05/24/18 13:25 16:52 17:26 WBC RBC Hgb Hct MCV MCH MCHC RDW Plt Count Seg Neutrophils % Lymphocytes % Monocytes % Eosinophils % Basophils % Absolute Neutrophils Absolute Lymphocytes Absolute Monocytes Absolute Eosinophils Absolute Basophils Sodium Potassium Chloride Carbon Dioxide Anion Gap BUN Creatinine Est GFR ( Amer) Est GFR (Non-Af Amer) Glucose Calcium Total Bilirubin Direct Bilirubin AST ALT Alkaline Phosphatase Creatine Kinase CK-MB (CK-2) Troponin I < 0.012 NT-Pro-B Natriuret Pep 82 Total Protein Albumin Lipase Urine Color YELLOW Urine Appearance CLEAR Urine pH 5.0 Ur Specific [place] 1.056 Urine Protein 100 H Urine Glucose (UA) NEGATIVE Urine Ketones NEGATIVE Urine Blood NEGATIVE Urine Nitrite NEGATIVE Urine Bilirubin NEGATIVE Urine Urobilinogen NEGATIVE Ur Leukocyte Esterase NEGATIVE Urine WBC (Auto) 1 Urine RBC (Auto) 0 Urine Mucus (Auto) FEW Urine Ascorbic Acid NEGATIVE Impressions: Chest X-Ray 05/24/18 13:26 IMPRESSION: Mild cardiomegaly Abdomen/Pelvis CT 05/24/18 15:24 IMPRESSION: Infiltrate or atelectasis right lower lobe. Probable small hepatic cyst right lobe of liver. Cholelithiasis. Abdomen Ultrasound 05/24/18 16:35 IMPRESSION: Small stone in the gallbladder neck. Borderline gallbladder wall thickening. Assessment & Plan - Diagnosis (1) Cholelithiasis and acute cholecystitis with obstruction Is this a current diagnosis for this admission?: Yes Plan: Patient comes with right upper quadrant ultrasound, abdominal ultrasound shows a stone in the gallbladder neck with borderline gallbladder thickening, consistent with probably early acute cholecystitis. Dr. Gallardo from the general surgery department and evaluated the patient and plan for surgery soon. In the meantime we will keep the patient on IV Zosyn, IV fluids, IV morphine as needed, IV Phenergan as needed. N.p.o. Will have ice chips. IV Protonix. (2) WPW (Xojju-Ipechcldq-Xayel syndrome) Is this a current diagnosis for this admission?: Yes Plan: Patient was diagnosed when he was 15 years old, at some point he was on atenolol which was switched to metoprolol due to a sluggish sensation. Patient has not been on any medications since he is 16 years old. EKG consistent with this diagnosis and in the past he had SVT before he was diagnosed with WPW. We will request cardiology clearance before surgery. Patient had bradycardia in the ED down to the 40s, patient was asymptomatic. Apparently patient has chronic bradycardia, clonidine was given in the ED 0.1 p.o. that could worsen his bradycardia. (3) Hypertension Qualifiers: Hypertension type: unspecified Qualified Code(s): I10 - Essential (primary ) hypertension Is this a current diagnosis for this admission?: Yes Plan: Patient was diagnosed with hypertension years ago, tells me that when he was diagnosed with WPW he was placed on blood pressure medicine but he does not remember which one. Patient is currently not taking any medication. Will be on hydralazine IV as needed (4) GERD (gastroesophageal reflux disease) Qualifiers: Esophagitis presence: without esophagitis Qualified Code(s): K21.9 - Gastro -esophageal reflux disease without esophagitis Is this a current diagnosis for this admission?: Yes Plan: For now on IV Protonix. - Time Time Spent: 30 to 50 Minutes - Inpatient Certification Based on my medical assessment, after consideration of the patient's comorbidities, presenting symptoms, or acuity I expect that the services needed warrant INPATIENT care.: Yes I certify that my determination is in accordance with my understanding of Medicare's requirements for reasonable and necessary INPATIENT services [42 CFR 412.3e].: Yes Medical Necessity: Risk of Complication if Not Cared For in Hospital
[2018-05-24] MEDS: NORMAL SALINE 1000 ML 1,000 ML IV PRN (20:48)
[2018-05-24] MEDS ORDERED: PIPERACILLIN/TAZOBACTAM 3.375 GM VIAL IV ONE (21:37)
[2018-05-24] MEDS: PANTOPRAZOLE SODIUM 40 MG VIAL IV SCH (21:46)
[2018-05-24] MEDS: HEPARIN SOD (PORCINE) 5,000 UNIT/ML 1 ML SYRINGE SUBCUT SCH (21:47)
[2018-05-25] MEDS: HEPARIN SOD (PORCINE) 5,000 UNIT/ML 1 ML SYRINGE SUBCUT SCH ×3 (05:07→22:08)
[2018-05-25] MEDS: NORMAL SALINE 1000 ML 1,000 ML IV PRN ×3 (05:09→23:21)
[2018-05-25] MEDS: PIPERACILLIN SODIUM/TAZOBACTAM 3.375 GM in NORMAL SALINE 50 ML IV SCH (05:09)
[2018-05-25 06:02] LABS: ABSOLUTE EOSINOPHILS # (AUTO) 0.1 10^3/uL (0.0-0.6); ABSOLUTE LYMPHOCYTES (AUTO) 2.9 10^3/uL (0.5-4.7); ABSOLUTE MONOCYTES (AUTO) 0.8 10^3/uL (0.1-1.4); ABSOLUTE NEUT (AUTO) 8.2 10^3/uL (1.7-8.2); BASOPHILS % (AUTO) 0.3 % (0-2); EOSINOPHILS % (AUTO) 0.7 % (0-6); HEMATOCRIT 37.2 % (37.9-51.0); LYMPHOCYTES % (AUTO) 23.9 % (13-45); MEAN CORPUSCULAR HEMOGLOBIN 31.4 pg (27.0-33.4); MEAN CORPUSCULAR VOLUME 90 fl (80-97); PLATELET COUNT 307 10^3/uL (150-450); RED BLOOD COUNT 4.15 10^6/uL (4.35-5.55); RED CELL DISTRIBUTION WIDTH 13.3 % (11.5-14.0); SEGMENTED NEUTROPHILS % (AUTO) 68.1 % (42-78); TOTAL CELLS COUNTED % (AUTO) 100 %; WHITE BLOOD COUNT 12.1 10^3/uL (4.0-10.5)
[2018-05-25 06:45] LABS: ANION GAP 11 (5-19); BLOOD UREA NITROGEN 12 mg/dL (7-20); CALCIUM 9.5 mg/dL (8.4-10.2); CARBON DIOXIDE 28 mmol/L (22-30); CHLORIDE 102 mmol/L (98-107); GLUCOSE 96 mg/dL (75-110); POTASSIUM 4.4 mmol/L (3.6-5.0); SODIUM 140.9 mmol/L (137-145); TRIGLYCERIDES 144 mg/dL (<150)
[2018-05-25 06:56] LABS: DIRECT LDL 102 mg/dL (<100)
[2018-05-25] MEDS ORDERED: DEXAMETHASONE SOD PHOSPHATE INJ 4 MG/1 ML VIAL ONE (09:11)
[2018-05-25] MEDS ORDERED: ROCURONIUM BROMIDE INJ 50 MG/5 ML VIAL IV ONE (09:11)
[2018-05-25] MEDS ORDERED: ONDANSETRON HCL INJ/PF 4 MG/2 ML SDV ONE (09:11)
[2018-05-25] MEDS ORDERED: SUCCINYLCHOLINE CHLORIDE INJ 200 MG/10 ML VIAL ONE (09:11)
[2018-05-25] MEDS: PANTOPRAZOLE SODIUM 40 MG VIAL IV SCH ×2 (10:15→22:08)
--- NOTE | 2018-05-25 10:54 | XCELERA REPORT ---
[address] [address] Transthoracic Echocardiogram Report Name: ANN VARGAS Age: 32 yrs Gender: Male : 1985 Patient Status: Inpatient Patient Location: [address] [place] [address] Study Date: 05/25/2018 08:29 AM Procedure: A two-dimensional transthoracic echocardiogram with color flow and Doppler was performed. Study Quality: Technically suboptimal. The study was technically limited with all images being suboptimal in quality. The study was technically difficult with many images being suboptimal in quality. Images were not obtained from all of the standard acoustic windows due to the limited scope of the study. Reason For Study: Pre-op clearance Uvsa-Rudvqlsix-Ybfqa History: e-op clearance/ Sewe-Lwcyalrsf-Fmnni Syndrome? Murmur. Ordering Physician: KRISITN PRECIADO Performed By: Janiya Aldridge Interpretation Summary The left ventricle is normal in size. There is normal left ventricular wall thickness. No True apical 2 chamber views obtained.Hence cannot comment on the apical anterior , the basal anterior, the basal inferior and apical inferior simpson.The mid anterior , the mid inferior and the rest of the LV simpson contract normally. .Normal LVEF is > than 60% in the limited views. Doppler measurements suggest normal left ventricular diastolic function There is no thrombus. The right ventricle is not well visualized secondary to technical limitations Right atrium not well visualized secondary to technical limitations The left atrial size is normal. There is no evidence of mitral valve prolapse. There is no mitral valve stenosis. There is no mitral regurgitation noted. There is no aortic valvular vegetation. There is no aortic valve stenosis There is no LVOT obstruction. No aortic regurgitation is present. There is no tricuspid stenosis. Probably trace TR.(not well interogated).RVSP is 38 to 43 mm of Hg , with RA mean of 5 to 10. There is mild pulmonary hypertension by echo There is no pulmonic valvular stenosis. There is no pulmonic valvular regurgitation. The inferior vena cava appeared normal and decreased > 50% with respiration (RAP 5-10 mmHg) Very small pericardial effusion behind RA. MMode/2D Measurements & Calculations RVDd: 3.7 cm LVIDd: 5.2 cm FS: 39.0 % Ao root diam: 3.3 cm IVSd: 1.1 cm LVIDs: 3.2 cm EDV(Teich): 130.3 ml Ao root area: 8.7 cm2 LVPWd: 0.93 cm ESV(Teich): 40.3 ml EF(Teich): 69.0 % Doppler Measurements & Calculations MV E max harjit: MV dec slope: Ao V2 max: LV V1 max P.3 cm/sec 159.0 cm/sec 4.8 mmHg MV A max harjit: 400.1 cm/sec2 Ao max PG: LV V1 max: 66.7 cm/sec MV dec time: 10.1 mmHg 109.9 cm/sec MV E/A: 1.1 0.19 sec PA V2 max: TR max harjit: Pulm Sys Harjit: 138.7 cm/sec 285.6 cm/sec 55.3 cm/sec PA max P.7 mmHgTR max P.6 mmHg Left Ventricle The left ventricle is normal in size. There is normal left ventricular wall thickness. No True apical 2 chamber views obtained.Hence cannot comment on the apical anterior , the basal anterior, the basal inferior and apical inferior simpson.The mid anterior , the mid inferior and the rest of the LV simpson contract normally. .Normal LVEF is > than 60% in the limited views. Doppler measurements suggest normal left ventricular diastolic function. There is no thrombus. Right Ventricle The right ventricle is not well visualized secondary to technical limitations. Atria Right atrium not well visualized secondary to technical limitations. The left atrial size is normal. Mitral Valve There is no evidence of mitral valve prolapse. There is no vegetation seen on the mitral valve. There is no mitral valve stenosis. There is no mitral regurgitation noted. Aortic Valve There is no aortic valvular vegetation. There is no aortic valve stenosis. There is no LVOT obstruction. No aortic regurgitation is present. Tricuspid Valve There is no tricuspid stenosis. Probably trace TR.(not well interogated).RVSP is 38 to 43 mm of Hg , with RA mean of 5 to 10. There is mild pulmonary hypertension by echo. Pulmonic Valve There is no pulmonic valvular stenosis. There is no pulmonic valvular regurgitation. Great Vessels The aortic root is normal size. The inferior vena cava appeared normal and decreased > 50% with respiration (RAP 5-10 mmHg). Effusions Very small pericardial effusion behind RA. : KRISTIN PRECIADO > Kristin Preciado
--- NOTE | 2018-05-25 11:14 | Progress Note ---
Provider Note Provider Note: PROGRESS NOTES by Dr. Kristin Castro on 05/25/2018. The patient's echo shows normal LV ejection fraction. There is no aortic stenosis or aortic regurgitation. There is mild pulmonary hypertension. Hence prior cardiac risk assessment stands, and is the same. Will follow the patient postoperatively. Would recommend transferring the patient to 3 W. or 3 S. on telemetry, for reasons mentioned earlier in the consult. Thank you
[2018-05-25] MEDS: PIPERACILLIN SODIUM/TAZOBACTAM 3.375 GM in NORMAL SALINE 100 ML IV SCH ×3 (11:15→23:24)
[2018-05-25] MEDS ORDERED: MIDAZOLAM 2 MG/2 ML INJ ONE (12:15)
[2018-05-25] MEDS ORDERED: HYDROMORPHONE HCL INJ/PF 2 MG/ML AMPULE ONE (12:15)
[2018-05-25] MEDS ORDERED: PROPOFOL INJ 200 MG/20 ML VIAL IV ONE (12:16)
[2018-05-25] MEDS ORDERED: ACETAMINOPHEN 1,000 MG/100 ML RTUPB IV ONE (12:16)
[2018-05-25] MEDS ORDERED: AMIODARONE HCL INJ 150 MG/3 ML VIAL IV PRN (12:44)
[2018-05-25] MEDS ORDERED: BUPIVACAINE HCL 0.5 % INJ/PF 30 ML SDV ONE (12:48)
[2018-05-25] MEDS ORDERED: LIDOCAINE 2% INJ-PF (20 MG/ML) 10 ML AMPUL ONE (12:49)
[2018-05-25] MEDS ORDERED: FENTANYL CITRATE INJ/PF 100 MCG/2 ML AMPUL ONE (13:24)
[2018-05-25] MEDS ORDERED: MORPHINE SULFATE 10 MG/ML INJ IV PRN (13:31)
[2018-05-25] MEDS ORDERED: PROMETHAZINE HCL INJ 25 MG/1 ML VIAL IV PRN ×2 (13:31)
[2018-05-25] MEDS ORDERED: MEPERIDINE HCL/PF INJ 25 MG/1 ML DISP.SYRIN IV PRN (13:31)
[2018-05-25] MEDS ORDERED: FENTANYL CITRATE INJ/PF 100 MCG/2 ML AMPUL IV PRN ×3 (13:31)
[2018-05-25] MEDS ORDERED: DIPHENHYDRAMINE HCL 50 MG/ML VIAL IV PRN (13:31)
--- NOTE | 2018-05-25 13:35 | PDOC PROGRESS REPORT ---
Subjective Progress Note for:: 05/25/18 Subjective:: Awaiting OR for cholecystitis Reason For Visit: CHOLELITHIASIS WITH ACUTE BILIARY COLIC Physical Exam Vital Signs: Temp Pulse Resp BP Pulse Ox 98.0 F 71 16 148/80 H 100 05/25/18 11:34 05/25/18 11:34 05/25/18 11:34 05/25/18 11:34 05/25/18 11:34 Intake & Output 05/24/18 05/25/18 05/26/18 06:59 06:59 06:59 Intake Total 2150 Balance 2150 Weight 117.9 kg General appearance: PRESENT: no acute distress, well-developed, well-nourished Head exam: PRESENT: atraumatic, normocephalic Eye exam: PRESENT: conjunctiva pink, EOMI, PERRLA. ABSENT: scleral icterus Ear exam: PRESENT: normal external ear exam Mouth exam: PRESENT: moist, tongue midline Neck exam: ABSENT: carotid bruit, JVD, lymphadenopathy, thyromegaly Respiratory exam: PRESENT: clear to auscultation prasad. ABSENT: rales, rhonchi, wheezes Cardiovascular exam: PRESENT: bradycardia, +S1, +S2. ABSENT: diastolic murmur, rubs, systolic murmur Pulses: PRESENT: normal dorsalis pedis pul Vascular exam: PRESENT: normal capillary refill GI/Abdominal exam: PRESENT: normal bowel sounds, soft. ABSENT: distended, guarding, mass, organolmegaly, rebound, tenderness Rectal exam: PRESENT: deferred Extremities exam: PRESENT: full ROM. ABSENT: calf tenderness, clubbing, pedal edema Neurological exam: PRESENT: alert, awake, oriented to person, oriented to place , oriented to time, oriented to situation, CN II-XII grossly intact. ABSENT: motor sensory deficit Psychiatric exam: PRESENT: appropriate affect, normal mood. ABSENT: homicidal ideation, suicidal ideation Skin exam: PRESENT: dry, intact, warm. ABSENT: cyanosis, rash Results Laboratory Results: 05/25/18 04:48 05/25/18 04:49 05/25/18 05/25/18 05/25/18 04:48 04:49 04:49 WBC 12.1 H RBC 4.15 L Hgb 13.0 L Hct 37.2 L MCV 90 MCH 31.4 MCHC 35.0 RDW 13.3 Plt Count 307 Seg Neutrophils % 68.1 Lymphocytes % 23.9 Monocytes % 7.0 Eosinophils % 0.7 Basophils % 0.3 Absolute Neutrophils 8.2 Absolute Lymphocytes 2.9 Absolute Monocytes 0.8 Absolute Eosinophils 0.1 Absolute Basophils 0.0 Sodium 140.9 Potassium 4.4 Chloride 102 Carbon Dioxide 28 Anion Gap 11 BUN 12 Creatinine 0.96 Est GFR ( Amer) > 60 Est GFR (Non-Af Amer) > 60 Glucose 96 Calcium 9.5 Triglycerides 144 Cholesterol 167.90 LDL Cholesterol Direct 102 H VLDL Cholesterol 29.0 HDL Cholesterol 42 TSH 0.42 L Impressions: Chest X-Ray 05/24/18 13:26 IMPRESSION: Mild cardiomegaly Abdomen/Pelvis CT 05/24/18 15:24 IMPRESSION: Infiltrate or atelectasis right lower lobe. Probable small hepatic cyst right lobe of liver. Cholelithiasis. Abdomen Ultrasound 05/24/18 16:35 IMPRESSION: Small stone in the gallbladder neck. Borderline gallbladder wall thickening. Assessment & Plan - Diagnosis (1) Cholelithiasis Qualifiers: Cholelithiasis location: gallbladder Cholecystitis presence: with cholecystitis Cholecystitis acuity: acute Biliary obstruction: without biliary obstruction Qualified Code(s): K80.00 - Calculus of gallbladder with acute cholecystitis without obstruction Is this a current diagnosis for this admission?: Yes (2) GERD (gastroesophageal reflux disease) Qualifiers: Esophagitis presence: without esophagitis Qualified Code(s): K21.9 - Gastro -esophageal reflux disease without esophagitis Is this a current diagnosis for this admission?: Yes (3) Hypertension Qualifiers: Hypertension type: unspecified Qualified Code(s): I10 - Essential (primary ) hypertension Is this a current diagnosis for this admission?: Yes (4) WPW (Lpglh-Ykdsfoopt-Ofwfb syndrome) Is this a current diagnosis for this admission?: Yes - Time Time Spent with patient: 15-24 minutes Medications reviewed and adjusted accordingly: Yes Anticipated discharge: Home Within: within 48 hours - Inpatient Certification Based on my medical assessment, after consideration of the patient's comorbidities, presenting symptoms, or acuity I expect that the services needed warrant INPATIENT care.: Yes Medical Necessity: Need Close Monitoring Due to Risk of Patient Decompensation, Need for Surgery - Plan Summary Plan Summary: Patient admitted overnight with acute cholecystitis. 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 Patient had an echocardiogram done today which showed normal LV ejection fraction. He has been seen by the inventory administrator and the plan is to proceed to surgery. Patient currently denies any other complaints.
[2018-05-25] MEDS ORDERED: KETOROLAC TROMETHAMINE INJ/PF 30 MG/1 ML SDV IV PRN (14:17)
[2018-05-25] MEDS ORDERED: KETOROLAC TROMETHAMINE 10 MG TABLET PO PRN ×2 (14:17→18:10)
[2018-05-25] MEDS ORDERED: ONDANSETRON HCL INJ/PF 4 MG/2 ML SDV IV PRN (14:17)
--- NOTE | 2018-05-25 14:23 | Operative Report ---
Operative Report DATE OF SURGERY: 05/25/18 PREOPERATIVE DIAGNOSIS: Acute cholecystitis with cholelithiasis POSTOPERATIVE DIAGNOSIS: Same OPERATION: Laparoscopic cholecystectomy SURGEON: RAUL MERCHANT ANESTHESIA: GA TISSUE REMOVED OR ALTERED: Gallbladder with contents COMPLICATIONS: None ESTIMATED BLOOD LOSS: 125 cc INTRAOPERATIVE FINDINGS: See below PROCEDURE: After obtaining informed consent, the patient was taken to the operating room. General Anesthesia was induced; the arms were extended, and the abdomen was exposed, and prepped and draped in a sterile fashion. Instrumentation was set up for laparoscopic cholecystectomy. Surgical plan and surgical timeout were conducted. A vertical incision was made above the umbilicus, and a verres needle was inserted uneventfully into the peritoneal cavity. Pneumoperitoneum was established. The verres needle was removed and a 5 mm trocar was inserted and a 5 mm flexible laparoscope was inserted. Visualization of the peritoneal cavity confirmed safe uneventful entry. Under direct visualization 3 additional 5 mm ports were established, one in the subxiphoid position and second in the subcostal position. Findings were significant for an acutely inflamed, edematous and free necrotic gallbladder wall. The gallbladder was aspirated approximately 75 cc of green bile. We placed graspers on the gallbladder fundus, and elevated the gallbladder up over the right lobe of the liver. The gastrocolic termination of hook cautery, and blunt suction dissection. We began dissecting at the neck of the gallbladder which was quite thickened. Because of this and the persisting adhesions, I elected to proceed with a top-down approach. Graspers were repositioned and the gallbladder was taken down from fundus using hook cautery. This proceeded uneventfully until we got down to the cystic artery which we encountered some O[place]ana arterial bleeding. Eventually we gained control after losing approximately 100 cc of blood. 2 secure the cystic artery proximally with 2 clips, distally with one clip and then divided the artery with scissors. We now cleaned the remaining adventitia exposing the neck of the gallbladder, the infundibulum and the cystic duct. Multiple photos were taken. The cystic duct was clipped once distally, and a 0 Endoloop PDS was placed proximally. Photos were taken. The cystic duct was divided. Graspers were repositioned and the gallbladder was removed uneventfully from the abdominal cavity through the super umbilical port site incision. The specimen was examined, then passed off to pathology for permanent analysis. We returned to the peritoneal cavity check for bleeding, and evidence of bile leak, and there was none. We Confirmed satisfactory placement of clips on cystic duct and cystic artery were secured . At this point we felt the operation was complete. The subcutaneous tissue was then anesthetized with quarter percent Marcaine Sponge and needle counts are correct. All ports removed under direct visualization pneumoperitoneum evacuated, supraumbilical port was closed with 0 Vicryl, and skin closed with with 3-0 Vicryl suture, benzoin and Steri-Strips. The patient was extubated, and taken to the recovery room in stable condition.
[2018-05-25] MEDS ORDERED: OXYCODONE-ACETAMINOPHEN 5-325 MG TABLET PO PRN (17:37)
[2018-05-26 05:27] LABS: ABSOLUTE BASOPHILS # (AUTO) 0.1 10^3/uL (0.0-0.2); ABSOLUTE LYMPHOCYTES (AUTO) 1.9 10^3/uL (0.5-4.7); ABSOLUTE MONOCYTES (AUTO) 0.6 10^3/uL (0.1-1.4); ABSOLUTE NEUT (AUTO) 7.9 10^3/uL (1.7-8.2); BASOPHILS % (AUTO) 1.1 % (0-2); EOSINOPHILS % (AUTO) 0.1 % (0-6); HEMATOCRIT 34.3 % (37.9-51.0); HEMOGLOBIN 12.3 g/dL (13.5-17.0); LYMPHOCYTES % (AUTO) 17.8 % (13-45); MEAN CORPUSCULAR HEMOGLOBIN 31.7 pg (27.0-33.4); MEAN CORPUSCULAR HGB CONC 35.8 g/dL (32.0-36.0); MEAN CORPUSCULAR VOLUME 88 fl (80-97); MONOCYTES % (AUTO) 5.5 % (3-13); PLATELET COUNT 279 10^3/uL (150-450); RED BLOOD COUNT 3.88 10^6/uL (4.35-5.55); RED CELL DISTRIBUTION WIDTH 13.1 % (11.5-14.0); SEGMENTED NEUTROPHILS % (AUTO) 75.5 % (42-78); TOTAL CELLS COUNTED % (AUTO) 100 %; WHITE BLOOD COUNT 10.5 10^3/uL (4.0-10.5)
[2018-05-26 05:57] LABS: ANION GAP 7 (5-19); BLOOD UREA NITROGEN 14 mg/dL (7-20); CARBON DIOXIDE 28 mmol/L (22-30); CHLORIDE 103 mmol/L (98-107); GLUCOSE 105 mg/dL (75-110); POTASSIUM 4.3 mmol/L (3.6-5.0); SODIUM 138.2 mmol/L (137-145)
[2018-05-26] MEDS: PIPERACILLIN SODIUM/TAZOBACTAM 3.375 GM in NORMAL SALINE 100 ML IV SCH (06:07)
[2018-05-26] MEDS: HEPARIN SOD (PORCINE) 5,000 UNIT/ML 1 ML SYRINGE SUBCUT SCH (06:08)
[2018-05-26] MEDS: NORMAL SALINE 1000 ML 1,000 ML IV PRN (06:08)
[2018-05-26] MEDS: PANTOPRAZOLE SODIUM 40 MG VIAL IV SCH (09:26)
--- NOTE | 2018-05-26 10:23 | PDOC DISCHARGE SUMMARY ---
General - Admit/Disc Date/PCP Admission Date/Primary Care Provider: 05/24/18 18:41 Discharge Date: 05/26/18 - Discharge Diagnosis (1) Cholelithiasis Is this a current diagnosis for this admission?: Yes Summary: And acute cholecystitis, patient is s/p Lap cholecystectomy (2) GERD (gastroesophageal reflux disease) Is this a current diagnosis for this admission?: Yes (3) Hypertension Is this a current diagnosis for this admission?: Yes (4) WPW (Evrbi-Nhzihdrya-Hckgd syndrome) Is this a current diagnosis for this admission?: Yes - Additional Information Resuscitation Status: Full Code Discharge Diet: As Tolerated Discharge Activity: Activity As Tolerated Home Medications: No Home Medications 05/25/18 History of Present Illness History of Present Illness: ANN VARGAS is a 32 year old male with medical history of Liu Parkinson White syndrome, SVTs, enlarged heart, GERD. Comes to the emergency department complaining of right upper quadrant pain that is started around 4 in the morning. Patient tells me that yesterday he ate more than his usual, he had almost one whole pizza with 5 teriyaki boneless and skittles. 2 hours after dinner he started with some right upper quadrant discomfort but he did not pay much attention and thought it was his GERD, he took Pepto-Bismol and went to sleep. Around 40 in the morning he started with loose stools, 6 nonbloody bowel movements that he stopped at 8 in the morning. Had also 2 episodes of nausea and nonbloody vomiting, vomited pizza and Pepto-Bismol. States that his right upper quadrant pain went up to 7/ 10 intensity, pressure-like, he did not feel that was related with food. Patient had similar symptoms in the past for several weeks but in less intensity. Patient was seen in our emergency department February this year for a similar symptoms but not at this intense and was told that was GERD and was sent home. Denies fever, chills, chest pain, shortness of breath, palpitations , headaches, dizziness or lightheadedness. Patient has not eaten anything today. She has been evaluated by Dr. Gallardo from the general surgery department and plan for cholecystectomy. Hospital Course Hospital Course: Patient was admitted with abdominal pain and found to have acute cholecystitis. 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 He was seen by cardiology to help manage his. He had an echocardiogram done which showed a grossly intact left ventricular systolic function. Patient underwent an on eventful laparoscopic cholecystectomy. He was monitored throughout his hospital course with no significant arrhythmias noted although patient was bradycardic initially on admission. 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 His TSH was noted to be borderline low at 0.47 and I suggest outpatient follow-up for further evaluation and management. Physical Exam Vital Signs: Temp Pulse Resp BP Pulse Ox 98.3 F 77 12 120/73 99 05/26/18 07:44 05/26/18 07:44 05/26/18 07:44 05/26/18 07:44 05/26/18 07:44 Intake & Output 05/25/18 05/26/18 05/27/18 06:59 06:59 06:59 Intake Total 2150 5722 100 Output Total 650 Balance 2150 5072 100 Weight 117.9 kg 119.6 kg General appearance: PRESENT: no acute distress, well-developed, well-nourished Head exam: PRESENT: atraumatic, normocephalic Eye exam: PRESENT: conjunctiva pink, EOMI, PERRLA. ABSENT: scleral icterus Ear exam: PRESENT: normal external ear exam Mouth exam: PRESENT: moist, tongue midline Neck exam: ABSENT: carotid bruit, JVD, lymphadenopathy, thyromegaly Respiratory exam: PRESENT: clear to auscultation prasad. ABSENT: rales, rhonchi, wheezes Cardiovascular exam: PRESENT: RRR. ABSENT: diastolic murmur, rubs, systolic murmur Pulses: PRESENT: normal dorsalis pedis pul Vascular exam: PRESENT: normal capillary refill GI/Abdominal exam: PRESENT: normal bowel sounds, soft, other - incision site umblical area and RUQ. ABSENT: distended, guarding, mass, organolmegaly, rebound, tenderness Rectal exam: PRESENT: deferred Extremities exam: PRESENT: full ROM. ABSENT: calf tenderness, clubbing, pedal edema Neurological exam: PRESENT: alert, awake, oriented to person, oriented to place , oriented to time, oriented to situation, CN II-XII grossly intact. ABSENT: motor sensory deficit Psychiatric exam: PRESENT: appropriate affect, normal mood. ABSENT: homicidal ideation, suicidal ideation Skin exam: PRESENT: dry, intact, warm. ABSENT: cyanosis, rash Results Laboratory Results: 05/26/18 05:06 05/26/18 05:06 05/26/18 05/26/18 05:06 05:06 WBC 10.5 RBC 3.88 L Hgb 12.3 L Hct 34.3 L MCV 88 MCH 31.7 MCHC 35.8 RDW 13.1 Plt Count 279 Seg Neutrophils % 75.5 Lymphocytes % 17.8 Monocytes % 5.5 Eosinophils % 0.1 Basophils % 1.1 Absolute Neutrophils 7.9 Absolute Lymphocytes 1.9 Absolute Monocytes 0.6 Absolute Eosinophils 0.0 Absolute Basophils 0.1 Sodium 138.2 Potassium 4.3 Chloride 103 Carbon Dioxide 28 Anion Gap 7 BUN 14 Creatinine 0.94 Est GFR ( Amer) > 60 Est GFR (Non-Af Amer) > 60 Glucose 105 Calcium 9.0 Impressions: Chest X-Ray 05/24/18 13:26 IMPRESSION: Mild cardiomegaly Abdomen/Pelvis CT 05/24/18 15:24 IMPRESSION: Infiltrate or atelectasis right lower lobe. Probable small hepatic cyst right lobe of liver. Cholelithiasis. Abdomen Ultrasound 05/24/18 16:35 IMPRESSION: Small stone in the gallbladder neck. Borderline gallbladder wall thickening. Qualifiers - * PATIENT BEING DISCHARGED WITH ANY OF THE FOLLOWING DIAGNOSIS: No Plan Time Spent: Less than 30 Minutes
[2018-05-26 11:49] VITALS: BP 141/76
--- NOTE | 2018-05-26 18:19 | PDOC PROGRESS REPORT ---
Subjective Progress Note for:: 05/26/18 Subjective:: Patient is postop surgery and has done well. He has ambulated and is expecting to be discharged. Patient seems to be doing better with gradual improvement. Pt is denying any chest arm or neck discomfort. Patient denying any PND, orthopnea. Patient denied any sustained palpitations, dizziness, syncope, near syncope. Patient denying any fever chills. Patient denying any other significant discomfort. Patient is maintaining sinus rhythm. Review of systems: Rest review of systems negative. Medications: Medications have been reviewed. Reason For Visit: CHOLELITHIASIS WITH ACUTE BILIARY COLIC Physical Exam Vital Signs: Temp Pulse Resp BP Pulse Ox 98.5 F 64 16 141/76 H 99 05/26/18 11:48 05/26/18 11:48 05/26/18 11:48 05/26/18 11:48 05/26/18 11:48 Intake & Output 05/25/18 05/26/18 05/27/18 06:59 06:59 06:59 Intake Total 2150 5722 1470 Output Total 650 Balance 2150 5072 1470 Weight 117.9 kg 119.6 kg Exam: GENERAL: well-nourished and in no acute distress. Alert and oriented x3 HEAD: Atraumatic, normocephalic. EYES: Pupils equal round and reactive to light, extraocular movements intact, sclera anicteric, conjunctiva are normal. ENT: TMs normal, nares patent, oropharynx clear without exudates. Moist mucous membranes. No oral ulcerations or bleeding gums noted NECK: supple without lymphadenopathy. Trachea is central. No cervical or axillary lymphadenopathy noted. Carotids are 2+, JVD WNL LUNGS: Respiration seems nonlabored, no significant accessory muscle action noted. Breath sounds clear to auscultation bilaterally and equal noted. No wheezes rales or rhonchi noted. No significant dullness noted on percussion. CHEST: Palpation of the chest wall shows no significant chest wall tenderness. 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 ABDOMEN: Soft, slight postsurgical right upper quadrant tenderness appreciated, normoactive bowel sounds. No guarding, no rebound. No rigidity noted . No masses appreciated. EXTREMITIES: Pedal pulses are 1-2+, no calf tenderness noted. No clubbing or cyanosis. negative pedal edema noted NEUROLOGICAL: Focused neurological exam showed no significant neurologic deficit. Normal speech, no focal weakness appreciated. PSYCH: Normal mood, normal affect. Judgment and insight within normal limits. SKIN: No significant ecchymosis, skin is noted to be warm. MUSCULOSKELETAL EXAM: No significant acute joint swelling noted. Results Laboratory Results: 05/26/18 05:06 05/26/18 05:06 05/26/18 05/26/18 05:06 05:06 WBC 10.5 RBC 3.88 L Hgb 12.3 L Hct 34.3 L MCV 88 MCH 31.7 MCHC 35.8 RDW 13.1 Plt Count 279 Seg Neutrophils % 75.5 Lymphocytes % 17.8 Monocytes % 5.5 Eosinophils % 0.1 Basophils % 1.1 Absolute Neutrophils 7.9 Absolute Lymphocytes 1.9 Absolute Monocytes 0.6 Absolute Eosinophils 0.0 Absolute Basophils 0.1 Sodium 138.2 Potassium 4.3 Chloride 103 Carbon Dioxide 28 Anion Gap 7 BUN 14 Creatinine 0.94 Est GFR ( Amer) > 60 Est GFR (Non-Af Amer) > 60 Glucose 105 Calcium 9.0 EKG Comments: Sinus rhythm, no acute ST-T wave changes are noted Impressions: Chest X-Ray 05/24/18 13:26 IMPRESSION: Mild cardiomegaly Abdomen/Pelvis CT 05/24/18 15:24 IMPRESSION: Infiltrate or atelectasis right lower lobe. Probable small hepatic cyst right lobe of liver. Cholelithiasis. Abdomen Ultrasound 05/24/18 16:35 IMPRESSION: Small stone in the gallbladder neck. Borderline gallbladder wall thickening. Assessment & Plan - Diagnosis (1) Cholelithiasis Qualifiers: Cholelithiasis location: gallbladder Cholecystitis presence: with cholecystitis Cholecystitis acuity: acute Biliary obstruction: without biliary obstruction Qualified Code(s): K80.00 - Calculus of gallbladder with acute cholecystitis without obstruction Is this a current diagnosis for this admission?: Yes (2) GERD (gastroesophageal reflux disease) Qualifiers: Esophagitis presence: without esophagitis Qualified Code(s): K21.9 - Gastro -esophageal reflux disease without esophagitis Is this a current diagnosis for this admission?: Yes (3) Hypertension Qualifiers: Hypertension type: essential hypertension Qualified Code(s): I10 - Essential (primary) hypertension Is this a current diagnosis for this admission?: Yes (4) WPW (Omdmj-Qwrhhdzll-Ulhyb syndrome) Is this a current diagnosis for this admission?: Yes - Notes Notes: Patient is status post cholecystectomy and has done well. Gastroesophageal reflux: Patient encouraged in weight loss. Patient also advised in taking a small meals and not eating within 3 hours of bedtime. Hypertension: Currently well controlled. Continue current regimen. WPW syndrome: Patient will benefit from EP follow-up and this was explained. Obesity: Patient encouraged in gradual weight loss. Patient may have underlying sleep apnea syndrome. This may need to be evaluated as an outpatient. - Time Time with patient: 15-25 minutes - More than 50% of the time spent coordinating care, discussing management plans with involved caregivers. Management plans discussed with involved personnels. Medical decision making was of moderate to high complexity, patient's has multiple comorbidities. Medications reviewed and adjusted accordingly: Yes
== END 2018-05-26 12:05 | disposition home or self-care (01) | DRG 419 ==
LOC: ER 12:43 → EH 18:41 → OBSVTOIN 18:41 → 4N 19:33 → 3W 05-25 15:34
PROVIDERS: ADMIT Emergency Medicine; ATTEND Emergency Medicine
PROC: 0FT44ZZ Resection of Gallbladder, Percutaneous Endoscopic Approach (ICD-10-PCS; principal; 2018-05-25 12:45)
DX: K80.00 Calculus of gallbladder with acute cholecystitis without obstruction (principal); K21.9 Gastro-esophageal reflux disease without esophagitis; R00.1 Bradycardia, unspecified; I45.6 Pre-excitation syndrome; I10 Essential (primary) hypertension; K66.0 Peritoneal adhesions (postprocedural) (postinfection); I51.7 Cardiomegaly; Z82.49 Family history of ischemic heart disease and other diseases of the circulatory system; Z87.891 Personal history of nicotine dependence
CPT/HCPCS: 36415; 71046; 74177; 76705; 790; 80048; 80053; 80061; 81001; 82550; 82553; 83690; 83880; 84443; 84484; 85025; 88304; 93005; 93010; 93306; 96365; 96375; 99285; J0131; J0330; J0461; J1100; J1170; J1885; J2250; J2270; J2405; J2543; J2704; J3010; J3490; J7030; S0164